=== PATIENT | male | born 1925 | race Caucasian/White ===

== ENCOUNTER → 2016-04-21 | Outpatient (CLI) | payer OTHER, BC ==
[~2016-04-21] MED LIST: ACETAMINOPHEN325 M1 PO; ACETAMINOPHEN325 MG PO; AFEDITAB CR30 MG PO; ALPHAGAN P10 ML OPHTHALMIC; ASA5UEC PO; ASPIR 8181 MG PO; ASPIRIN EC81 M1 PO; BACTRIM DS TAB1 EACH PO; BENTYL10 MG PO; CENTRUM SILVER1 EAC2 PO; CEPHALEXIN250 MG PO; COLACE100 MG PO; DIAZEPAM2 MG PO; ECONOPRED PLUS10 M1 OPHTHALMIC; FOLGARD TABLET1 EAC1 PO; LATANOPROST 0.2.5 ML OPHTHALMIC; LEVAQUIN 500 M500 MG PO; LIPITOR 20 MG T20 M1 PO; MEDROL DOSPAK21 TA1 PO; MULTIVITAMINS PO; MURO-128 5% OPH15 M1 OP; MURO-12815 ML/BOT OPHTHALMIC; MYCOLOG CREAM TOP; NATURAL BALANCE15 ML OTIC; NEURONTIN 300300 M1 PO; NEVANAC OP; NEVANAC3 ML OP; NEVANAC3 ML OPHTHALMIC; NIFEDIPINE ER30 M1 PO; NORCO 5-325 TA1 EACH PO; OMEPRAZOLE20 M2 PO; PRED-FORTE OPHTH1 M1 OP; PRILOSEC20 MG PO; PROTONIX40 M1 PO; SIMVASTATIN40 MG PO; SYSTANE BALANCE10 ML OPHTHALMIC; TAMSULOSIN HCL0.4 M1 PO; TRIAMCINOLONE 080 G3 TOP; TRIAMCINOLONE A80 G2 TOP; VALIUM2 MG PO; VITAMIN E200 UNIT PO; VITAMIN E400 UNIT PO; ZOCOR40 MG PO; ZOFRAN4 MG PO
== END ==
LOC: RAD 11:16
DX: J18.9 Pneumonia, unspecified organism (principal)

== ENCOUNTER → 2016-08-25 | Outpatient (CLI) | payer OTHER, BC | LOC: RAD 11:11 | DX: M48.07 Spinal stenosis, lumbosacral region (principal); M47.896 Other spondylosis, lumbar region ==

== ENCOUNTER → 2016-09-14 | Outpatient (CLI) | payer OTHER, BC ==
[~2016-09-14] VITALS: Ht 177.8 cm; Wt 74.7 kg
--- NOTE | ~2016-09-14 | HPC ---
[facility] [place] [address] PAIN MANAGEMENT CONSULTATION Name: HAYLEY LEROY Room #: REG [facility]#: [id number] Admission: 09/14/16 Attend Phys: Hayley Butler DO Discharge: Date of : [birth year] Report #: [id number] THIS REPORT FOR: //name// CC: Hayley Pettit MD DATE OF SERVICE: 09/14/2016 REFERRING PHYSICIAN: Bert Pettit MD. CHIEF COMPLAINT: Low back pain and right anterior thigh pain. HISTORY OF PRESENT ILLNESS: As you know, the patient is an 89-year-old male, who has been referred to our clinic for low back pain and right anterior thigh pain. The patient was seen in 2014 by [facility] for very similar findings. He underwent epidural injections with good benefit. He returns today in followup visit per the request of his Nurse practitioner, Barbara Horowitz for evaluation and possible epidural injection. He does come today with no new imaging. ALLERGIES: No known drug allergies. CURRENT MEDICATIONS: Systane 1 drop 4 times a day, one drop each eye per day, Alphagan two drops each eye per day, vitamin E 400 units per day, multivitamin 1 tab per day, omeprazole 20 mg per day, simvastatin 20 mg per day, docusate sodium 100 mg per day, nifedipine 30 mg once a day, aspirin 81 mg per day. SOCIAL HISTORY: The patient denies tobacco, alcohol, IV or illicit drug use. He is retired, retired years ago, unaccompanied today. IMAGING: No new imaging available. PHYSICAL EXAMINATION: VITAL SIGNS: Blood pressure 146/68, pulse 60, respiratory rate 16, unlabored. The patient is 98% on room air, height 5 feet 10 inches tall, weight 164.6 pounds, BMI calculated 23.6. GENERAL: Well-developed, well-nourished, and well-hydrated. An 89-year-old male. He appears his stated age. He is placing pain score today at 1-2/10. HEENT: Normocephalic and atraumatic. Pupils are equal, round, and reactive to light. Extraocular muscles are intact. Sclerae are nonicteric without injection. NEUROLOGIC: Cranial nerves 2-12 are grossly intact. Speech is fluent. LUNGS: Clear. No wheeze, rhonchi, or rales. CARDIOVASCULAR: Regular. No appreciable gallop or rub. [address] [address] PAIN MANAGEMENT CONSULTATION Name: RADHAYLEY Jean Pierre MERCER Room #: REG [facility]#: [id number] Admission: 09/14/16 Attend Phys: Hayley Butler DO Discharge: Date of : [birth year] Report #: [id number] ABDOMEN: Soft, nontender, and nondistended. EXTREMITIES: Show no clubbing, no cyanosis, no edema. MUSCULOSKELETAL: Lower extremity strength is symmetrical, but diminished bilaterally. Deep tendon reflexes are 1+/4 patella and Achilles, but symmetrical. Seated straight leg raising negative. Supine straight leg raising positive right. MARTIN test is negative. Gait is antalgic, favoring right lower extremity over left. The patient is using a cane for ambulation. ASSESSMENT: 1. Symptomatic lumbar radiculopathy. 2. 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 3. Displacement of lumbar intervertebral disk with radiculopathy. 4. Lumbosacral spondylosis with radiculopathy. 5. Chronic intractable pain. PLAN: 1. The patient has been referred back to our clinic today for evaluation for recurrent low back pain and lower extremity pain with paresthesias, affecting the right lower extremity. The patient underwent L2-L3 intra-articular facet injections in 2014 with good benefit. This in conjunction with physical therapy and medication management has led to 2 years of improvement in symptoms. Unfortunately, the patient has begun to experience increasing pain for which he was referred back to our clinic to trial next in the series of epidural injections. We have advised the patient of the risks and benefits of this procedure. These risks include but are not necessarily limited to bleeding, bruising, infection, worsening pain, no relief of pain, also risk of temporary or permanent muscle weakness, temporary or permanent nerve damage, possible paralysis and . The patient states he understood and wished to proceed. 2. The patient and I did discuss the findings on his previous MRI showed severe spinal stenosis at multiple levels. If the patient is not showing improvement in symptoms with epidural injections, we would recommend he undergo an MRI of the lumbar spine to further evaluate. We will hopefully be able to avoid this imaging, and his pain will improve with the injection, but this is still a possibility and surgical options may be necessary. 3. No medication changes were made at today's visit, the patient to continue current medical therapy as previously prescribed. 4. The patient is to return to our clinic on an as needed basis for possible next in the series of epidural injections. PROCEDURE NOTE DESCRIPTION OF PROCEDURE: Lumbar epidural steroid injection under fluoroscopic guidance. This is the first procedure of the second series that the patient is undergoing. [address] [address] PAIN MANAGEMENT CONSULTATION Name: HAYLEY LEROY JR Room #: REG [facility]#: [id number] Admission: 09/14/16 Attend Phys: Hayley YumiKennedy Butler DO Discharge: Date of : [birth year] Report #: [id number] After obtaining written consent, the patient was taken back to the fluoroscopy suite, placed in a prone position with pillow under the abdomen to decrease lumbar lordosis. The skin overlying the lumbosacral area was then prepped and draped in aseptic fashion. The L2-L3 vertebral interspace was then identified by AP fluoroscopy. The skin and subcutaneous tissue overlying the target site of injection was anesthetized with 3 mL 1% lidocaine. A 20-guage 3-1/2 inch Tuohy needle was then advanced under fluoroscopic guidance towards the epidural space using a right paramedian approach. The epidural space was identified using loss of resistance to air technique. After negative aspiration for heme or cerebrospinal fluid, a total of 1 mL of Omnipaque was injected. A lumbar epidurogram was confirmed using both AP and lateral fluoroscopy. After negative aspiration for heme or cerebrospinal fluid, 5 mL of solution containing 2 mL 40 mg per mL, 80 mg total triamcinolone 3 mL of lidocaine 1% was injected in increments. Contrast spread was noted posterior epidural space. The needle was then retracted approximately half way and needle tract flushed with 1 mL of 1% lidocaine. Needle was then removed. There were no apparent sensory or motor deficits in the lower extremity following the procedure. A sterile bandage was placed over the injection site. The heart rate, pulse, oximetry and blood pressure were continuously monitored after the procedure. There were no apparent complications. The patient tolerated the procedure well and was carefully escorted to the recovery room in stable condition. There were no apparent complications. After meeting discharge criteria, the patient was then discharged home. By: [id number] Hayley Butler DO /nt
[2016-09-14 08:54] VITALS: BP 146/68
== END ==
LOC: PAIN 06:44
DX: M47.817 Spondylosis without myelopathy or radiculopathy, lumbosacral region (principal); M51.16 Intervertebral disc disorders with radiculopathy, lumbar region; M48.06 Spinal stenosis, lumbar region; I10 Essential (primary) hypertension; F10.21 Alcohol dependence, in remission; J18.9 Pneumonia, unspecified organism